=== PATIENT | male | born 1965 | race African-American/Black ===

== ENCOUNTER 2016-07-31 19:28 | Inpatient (IN) | payer MEDICAID ==
[~2016-07-31] VITALS: Ht 177.8 cm; Wt 165.0 kg
[~2016-07-31 19:28] MED LIST: ALLO100T PO; AMLO-512 PO; LISI10TA7 PO; SIMV5TAB6 PO
[2016-07-31 20:24] LABS: BASOPHILS % (AUTO) 1.2 % (0.0-2.0); EOSINOPHILS % (AUTO) 4.1 % (1.0-6.0); HEMATOCRIT 40.4 % (41-53); HEMOGLOBIN 12.9 g/dL (13.5-17.5); LYMPHOCYTES # (AUTO) 2.2 K/uL (1.0-4.8); LYMPHOCYTES % (AUTO) 36.1 % (22.0-44.0); MEAN CORPUSCULAR HEMOGLOBIN 26.4 pg (26.0-34.0); MEAN CORPUSCULAR VOLUME 83 fL (80-100); MONOCYTES % (AUTO) 16.4 % (2.0-9.0); NEUTROPHILS # (AUTO) 2.6 K/uL (1.8-7.7); NEUTROPHILS % (AUTO) 42.2 % (40.0-70.0); PLATELET COUNT (AUTO) 253 K/uL (150-450); RED CELL DISTRIBUTION WIDTH 16.2 % (11.5-14.5); WHITE BLOOD COUNT (AUTO) 6.1 K/uL (4.5-11.0)
[2016-07-31 22:07] LABS: ANION GAP 9 mmol/L (8-16); CALCIUM, TOTAL 8.8 mg/dL (8.8-10.5); CARBON DIOXIDE 27 mmol/L (22-29); CHLORIDE 106 mmol/L (98-107); CREATININE 1.26 mg/dL (0.60-1.30); GLOMERULAR FILTR. RATE CALC > 60 mL/min (>60); POTASSIUM 4.2 mmol/L (3.5-5.1); SODIUM SERUM 142 mmol/L (136-145); UREA NITROGEN, BLOOD 14 mg/dL (7-18)
[2016-07-31 22:14] LABS: ALANINE AMINOTRANSFERASE 34 U/L (12-78); ALBUMIN 3.4 g/dL (3.4-5.0); ASPARTATE AMINOTRANSFERASE 28 U/L (15-37); BILIRUBIN,TOTAL 0.1 mg/dL (0.1-1.0); TOTAL PROTEIN, SERUM 7.6 g/dL (6.4-8.2)
[2016-07-31] MEDS ORDERED: ALBUTEROL SULFATE 5 MG/ML 20 ML NEB SOLN [BULK] NEB ONE (23:00)
[2016-07-31] MEDS ORDERED: IPRATROPIUM BROMIDE 0.5 MG/2.5 ML NEB SOLUTION NEB ONE (23:00)
[2016-07-31] MEDS ORDERED: LORazepam 2 MG TABLET PO PRN (23:15)
[2016-07-31] MEDS ORDERED: ZOLPIDEM TARTRATE 10 MG TABLET PO PRN (23:15)
[2016-07-31] MEDS ORDERED: HALOPERIDOL 5 MG TABLET PO PRN (23:15)
[2016-07-31] MEDS ORDERED: 0.9% SODIUM CHLORIDE 5 ML NEB SOLUTION NEB ONE (23:17)
[2016-07-31 23:45] LABS: CREATINE KINASE MB 2.9 ng/mL (0-5); CREATINE KINASE, TOTAL 686 U/L (39-308)
[2016-08-01 00:44] LABS: CREATINE KINASE MB 2.5 ng/mL (0-5); CREATINE KINASE, TOTAL 608 U/L (39-308)
[2016-08-01] MEDS ORDERED: SODIUM CHLORIDE 0.9% 1,000 ML IV ONE (01:00)
[2016-08-01] MEDS ORDERED: ASPIRIN 325 MG TABLET PO ONE (01:00)
[2016-08-01] MEDS ORDERED: LORazepam 2 MG/ML VIAL IVP ONE ×2 (01:00→02:00)
[2016-08-01] MEDS ORDERED: NITROGLYCERIN 2% (1 GM=INCH) PACKET TP ONE (01:00)
[2016-08-01] MEDS ORDERED: ACETAMINOPHEN 325 MG TABLET PO PRN ×2 (01:45→05:45)
[2016-08-01] MEDS ORDERED: 0.9% SODIUM CHLORIDE 10 ML SYRINGE IVP PRN ×2 (01:45→05:45)
[2016-08-01] MEDS ORDERED: ONDANSETRON HCL 4 MG/2 ML VIAL IVP PRN ×2 (01:45→05:45)
[2016-08-01] MEDS ORDERED: ENOXAPARIN SODIUM 80 MG/0.8 ML PF SYRINGE SQ ONE (02:00)
[2016-08-01] MEDS ORDERED: ENOXAPARIN SODIUM 60 MG/0.6 ML PF SYRINGE SQ ONE (02:00)
[2016-08-01 02:07] LABS: INR 0.9 (0.9-1.1)
[2016-08-01] MEDS ORDERED: MAGNESIUM HYDROXIDE SUSPENSION 30 ML UDCUP PO PRN (05:45)
[2016-08-01] MEDS ORDERED: BISACODYL 10 MG RECTAL RECTAL SUPPOSITORY PR PRN (05:45)
[2016-08-01] MEDS ORDERED: ZOLPIDEM TARTRATE 5 MG TABLET PO PRN (05:45)
[2016-08-01] MEDS: ASPIRIN 81 MG CHEWABLE TABLET PO SCH (06:18)
[2016-08-01 06:28] LABS: CHOL/HDL RATIO 3.3 (4.2-7.3)
[2016-08-01] MEDS: HEPARIN SODIUM,PORCINE 5,000 UNITS/ML VIAL SQ SCH ×2 (07:39→15:47)
[2016-08-01] MEDS: HYDROCODONE/ACETAMINOPHEN 5-325 MG TABLET PO PRN ×2 (07:58→17:47)
[2016-08-01] MEDS: ATORVASTATIN CALCIUM 40 MG TABLET PO SCH (07:59)
[2016-08-01] MEDS: PANTOPRAZOLE SODIUM 40 MG DR TABLET PO SCH (08:00)
[2016-08-01] MEDS: DOCUSATE SODIUM 100 MG CAPSULE PO SCH ×2 (08:00→20:29)
[2016-08-01] MEDS: LISINOPRIL 10 MG TABLET PO SCH (08:00)
[2016-08-01] MEDS: AmLODIPine BESYLATE 10 MG TABLET PO SCH (09:08)
[2016-08-01] MEDS: MORPHINE SULFATE 2 MG/ML SYRINGE IVP PRN (10:28)
[2016-08-01 17:05] VITALS: BP 120/74
[2016-08-01] MEDS ORDERED: LORazepam 2 MG/ML VIAL IVP PRN (18:15)
[2016-08-01] MEDS: NICOTINE 21 MG/24 HOUR PATCH TD SCH (18:15)
[2016-08-01 19:57] VITALS: BP 120/95
[2016-08-01 23:14] VITALS: BP 122/72
[2016-08-02] MEDS: HEPARIN SODIUM,PORCINE 5,000 UNITS/ML VIAL SQ SCH ×3 (00:30→16:15)
[2016-08-02 04:46] VITALS: BP 138/72
[2016-08-02] MEDS: ASPIRIN 81 MG CHEWABLE TABLET PO SCH (05:55)
[2016-08-02 07:54] VITALS: BP 117/79
[2016-08-02] MEDS: NICOTINE 21 MG/24 HOUR PATCH TD SCH ×2 (08:04→08:09)
[2016-08-02] MEDS: PANTOPRAZOLE SODIUM 40 MG DR TABLET PO SCH (08:04)
[2016-08-02] MEDS: AmLODIPine BESYLATE 10 MG TABLET PO SCH (08:04)
[2016-08-02] MEDS: LISINOPRIL 10 MG TABLET PO SCH (08:04)
[2016-08-02] MEDS: ATORVASTATIN CALCIUM 40 MG TABLET PO SCH (08:04)
[2016-08-02] MEDS: DOCUSATE SODIUM 100 MG CAPSULE PO SCH ×3 (08:04→19:57)
[2016-08-02 08:40] VITALS: BP 141/67
[2016-08-02] MEDS: HYDROCODONE/ACETAMINOPHEN 5-325 MG TABLET PO PRN ×2 (08:49→16:15)
[2016-08-02 11:33] VITALS: BP 106/57
[2016-08-02 15:50] VITALS: BP 127/64
[2016-08-02] MEDS ORDERED: ASPI81 PO (16:48)
[2016-08-02] MEDS ORDERED: AMLO-512 PO (16:49)
[2016-08-02] MEDS ORDERED: ATOR40TA28 PO (16:49)
[2016-08-02] MEDS ORDERED: HEPA500017 SQ (16:50)
[2016-08-02] MEDS ORDERED: LISI-661 PO (16:50)
[2016-08-02] MEDS ORDERED: PANT40TA25 PO (16:51)
[2016-08-02] MEDS ORDERED: NICO21T TD (16:51)
[2016-08-02 19:16] VITALS: BP 120/58
[2016-08-02] MEDS: PALIPERIDONE 6 MG ER TABLET PO SCH (19:51)
[2016-08-02] MEDS: MORPHINE SULFATE 2 MG/ML SYRINGE IVP PRN (19:51)
[2016-08-03] VITALS (9 sets, daily range): BP systolic 106–130; BP diastolic 57–76
[2016-08-03] MEDS: HEPARIN SODIUM,PORCINE 5,000 UNITS/ML VIAL SQ SCH ×3 (00:03→14:42)
[2016-08-03] MEDS: HYDROCODONE/ACETAMINOPHEN 5-325 MG TABLET PO PRN ×3 (00:10→18:54)
[2016-08-03] MEDS: ASPIRIN 81 MG CHEWABLE TABLET PO SCH (06:18)
[2016-08-03 07:31] LABS: ANION GAP 8 mmol/L (8-16); CALCIUM, TOTAL 8.8 mg/dL (8.8-10.5); CARBON DIOXIDE 28 mmol/L (22-29); CHLORIDE 103 mmol/L (98-107); CREATININE 1.22 mg/dL (0.60-1.30); GLOMERULAR FILTR. RATE CALC > 60 mL/min (>60); POTASSIUM 4.5 mmol/L (3.5-5.1); SODIUM SERUM 139 mmol/L (136-145); UREA NITROGEN, BLOOD 19 mg/dL (7-18)
[2016-08-03] MEDS: DOCUSATE SODIUM 100 MG CAPSULE PO SCH ×2 (08:34→20:21)
[2016-08-03] MEDS: NICOTINE 21 MG/24 HOUR PATCH TD SCH (08:34)
[2016-08-03] MEDS: PANTOPRAZOLE SODIUM 40 MG DR TABLET PO SCH (08:34)
[2016-08-03] MEDS: ATORVASTATIN CALCIUM 40 MG TABLET PO SCH (08:34)
[2016-08-03] MEDS: LISINOPRIL 10 MG TABLET PO SCH (08:34)
[2016-08-03] MEDS: AmLODIPine BESYLATE 10 MG TABLET PO SCH (08:34)
[2016-08-03] MEDS: FLUoxetine HCL 20 MG CAPSULE PO SCH (08:34)
[2016-08-03] MEDS: PALIPERIDONE 6 MG ER TABLET PO SCH (20:21)
[2016-08-04] VITALS (18 sets, daily range): BP systolic 100–145; BP diastolic 45–90
[2016-08-04] MEDS: ASPIRIN 81 MG CHEWABLE TABLET PO SCH (06:00)
[2016-08-04] MEDS: HEPARIN SODIUM,PORCINE 5,000 UNITS/ML VIAL SQ SCH ×3 (07:33→15:56)
[2016-08-04] MEDS: DOCUSATE SODIUM 100 MG CAPSULE PO SCH (07:33)
[2016-08-04] MEDS: NICOTINE 21 MG/24 HOUR PATCH TD SCH (07:34)
[2016-08-04] MEDS ORDERED: FentaNYL CITRATE-PF 100 MCG/2 ML VIAL ONE ×2 (08:38→10:04)
[2016-08-04] MEDS ORDERED: LIDOCAINE HCL/PF 1% 30 ML VIAL ONE ×2 (08:39→09:30)
[2016-08-04] MEDS ORDERED: IOHEXOL 300 MG/ML 150 ML VIAL ONE (08:39)
[2016-08-04] MEDS ORDERED: MIDAZOLAM HCL 2 MG/2 ML VIAL ONE ×2 (08:39→10:04)
[2016-08-04] MEDS ORDERED: SODIUM BICARBONATE 50 MEQ/50 ML VIAL ONE (08:39)
[2016-08-04] MEDS ORDERED: HEPARIN SODIUM 1000 UNITS/NS 1,000 ML ONE (08:40)
[2016-08-04] MEDS ORDERED: NITROGLYCERIN 50 MG/D5% WATER 250 ML ONE (08:41)
[2016-08-04] MEDS ORDERED: VERAPAMIL HCL 2.5 MG/ML 2 ML VIAL ONE (08:41)
[2016-08-04] MEDS ORDERED: FentaNYL CITRATE-PF 100 MCG/2 ML VIAL IVP ONE ×2 (09:37→10:00)
[2016-08-04] MEDS ORDERED: DiphenhydrAMINE HCL 50 MG/ML VIAL ONE (09:37)
[2016-08-04] MEDS ORDERED: SODIUM CHLORIDE 0.9% 500 ML IV ONE (09:37)
[2016-08-04] MEDS ORDERED: MIDAZOLAM HCL 2 MG/2 ML VIAL IVP ONE ×2 (09:37→10:00)
[2016-08-04] MEDS ORDERED: MethylPREDNISolone SOD SUCC 125 MG/2 ML VIAL IVP ONE (09:38)
[2016-08-04] MEDS ORDERED: DiphenhydrAMINE HCL 50 MG/ML VIAL IVP ONE (09:38)
[2016-08-04] MEDS ORDERED: MethylPREDNISolone SOD SUCC 125 MG/2 ML VIAL ONE (09:42)
[2016-08-04] MEDS ORDERED: LIDOCAINE 1% 30 ML/SOD BICARB 8.4% 4 ML SQ ONE (10:03)
[2016-08-04] MEDS ORDERED: HEPARIN SODIUM,PORCINE 5,000 UNITS/ML VIAL IVP ONE (10:06)
[2016-08-04] MEDS ORDERED: NITROGLYCERIN/D5W 50 MG/250 ML IV BOTTLE IARTER ONE (10:06)
[2016-08-04] MEDS ORDERED: VERAPAMIL HCL 2.5 MG/ML 2 ML VIAL IARTER ONE (10:06)
[2016-08-04] MEDS ORDERED: HEPARIN SODIUM 1000 UNITS/NS 1,000 ML IARTER ONE (10:07)
[2016-08-04] MEDS ORDERED: IOHEXOL 300 MG/ML 150 ML VIAL IARTER ONE (10:14)
[2016-08-04] MEDS: ATORVASTATIN CALCIUM 40 MG TABLET PO SCH (11:42)
[2016-08-04] MEDS: LISINOPRIL 10 MG TABLET PO SCH (11:42)
[2016-08-04] MEDS: FLUoxetine HCL 20 MG CAPSULE PO SCH (11:42)
[2016-08-04] MEDS: AmLODIPine BESYLATE 10 MG TABLET PO SCH (11:42)
[2016-08-04] MEDS: PANTOPRAZOLE SODIUM 40 MG DR TABLET PO SCH (11:46)
[2016-08-04] MEDS: HYDROCODONE/ACETAMINOPHEN 5-325 MG TABLET PO PRN (13:16)
[2016-08-04] MEDS ORDERED: PALI6 PO (15:50)
[2016-08-04] MEDS ORDERED: AMLO-511 PO (15:50)
[2016-08-04] MEDS ORDERED: FLUO-191 PO (15:52)
[2016-08-04] MEDS ORDERED: DSS100 PO (15:52)
[2016-08-04] MEDS ORDERED: METO25 PO (15:53)
[2016-08-04 16:35] LABS: ANION GAP 10 mmol/L (8-16); CALCIUM, TOTAL 8.9 mg/dL (8.8-10.5); CARBON DIOXIDE 25 mmol/L (22-29); CHLORIDE 101 mmol/L (98-107); CREATININE 1.38 mg/dL (0.60-1.30); GLOMERULAR FILTR. RATE CALC > 60 mL/min (>60); POTASSIUM 4.2 mmol/L (3.5-5.1); SODIUM SERUM 136 mmol/L (136-145); UREA NITROGEN, BLOOD 20 mg/dL (7-18)
[2016-08-04] MEDS ORDERED: MAGNESIUM SULFATE 2 GM in DEXTROSE 5%-WATER 50 ML IV ONE (17:00)
[2016-08-04] MEDS ORDERED: SODIUM CHLORIDE 0.9% 100 ML ONE (18:00)
[2016-08-04] MEDS ORDERED: METOPROLOL TARTRATE 25 MG TABLET PO SCH (21:00)
[2016-08-05] MEDS ORDERED: AmLODIPine BESYLATE 5 MG TABLET PO SCH (09:00)
== END 2016-08-04 21:00 | DRG 205 ==
LOC: EMS 19:29 → 5N 08-01 15:57
PROVIDERS: ADMIT Internal Medicine; ATTEND Internal Medicine
DX: I42.7 Cardiomyopathy due to drug and external agent (principal); I47.2 Ventricular tachycardia; R45.851 Suicidal ideations; Z68.43 Body mass index [BMI] 50.0-59.9, adult; I20.0 Unstable angina; E66.01 Morbid (severe) obesity due to excess calories; J44.9 Chronic obstructive pulmonary disease, unspecified; E78.5 Hyperlipidemia, unspecified; G47.33 Obstructive sleep apnea (adult) (pediatric); F25.1 Schizoaffective disorder, depressive type; F31.9 Bipolar disorder, unspecified; I10 Essential (primary) hypertension; M10.9 Gout, unspecified; F41.9 Anxiety disorder, unspecified; F14.10 Cocaine abuse, uncomplicated; F17.210 Nicotine dependence, cigarettes, uncomplicated; Z88.5 Allergy status to narcotic agent; Z88.0 Allergy status to penicillin; Z91.013 Allergy to seafood; Z91.018 Allergy to other foods; Z91.14 Patient's other noncompliance with medication regimen; Z79.899 Other long term (current) drug therapy; Z91.5 Personal history of self-harm; Z87.11 Personal history of peptic ulcer disease; Z81.8 Family history of other mental and behavioral disorders
CPT/HCPCS: 83735; 93005; 93306; 94640; 96372; 96374; 99285; G0480; J1200; J1644; J1650; J2060; J2250; J2270; J2930; J3010; J3475; J3490; J7030; J7050; J7060; Q9967

== ENCOUNTER 2016-08-04 21:00 | Inpatient (IN) | payer MEDICAID ==
[~2016-08-04] VITALS: Ht 177.8 cm; Wt 161.3 kg
[~2016-08-04 21:00] MED LIST changes: -ALLO100T PO; +AMLO-511 PO; +ASPI81 PO; +ATOR40TA28 PO; +DSS100 PO; +FLUO-191 PO; +HEPA500017 SQ; +LISI-661 PO; -LISI10TA7 PO; +METO25 PO; +NICO21T TD; +PALI6 PO; +PANT40TA25 PO; -SIMV5TAB6 PO
[2016-08-04] MEDS ORDERED: OLANZapine 5 MG RAPDIS TABLET PO PRN (22:45)
[2016-08-04] MEDS ORDERED: ZOLPIDEM TARTRATE 10 MG TABLET PO PRN (22:45)
[2016-08-04 23:04] VITALS: BP 137/83
[2016-08-05] MEDS: LORazepam 2 MG TABLET PO PRN ×2 (03:20→09:30)
[2016-08-05] MEDS ORDERED: BENZOCAINE/MENTHOL LOZENGE [8 LOZENGES/PACKET] MM PRN (06:00)
[2016-08-05] MEDS ORDERED: MAGNESIUM HYDROXIDE SUSPENSION 30 ML UDCUP PO PRN (06:00)
[2016-08-05] MEDS ORDERED: LOPERAMIDE HCL 2 MG CAPSULE PO PRN (06:00)
[2016-08-05] MEDS ORDERED: PETROLATUM,WHITE 71 GM JELLY TP PRN (06:00)
[2016-08-05] MEDS ORDERED: CloNIDine HCL 0.1 MG TABLET PO PRN (06:00)
[2016-08-05] MEDS ORDERED: ONDANSETRON HCL 4 MG TABLET PO PRN (06:00)
[2016-08-05] MEDS ORDERED: BACITRACIN 28.4 GM OINTMENT TP PRN (06:00)
[2016-08-05] MEDS ORDERED: ALBUTEROL SULFATE HFA 90 MCG/PUFF 8 GM INHALER IH PRN (06:00)
[2016-08-05] MEDS ORDERED: MAG HYDROX/AL HYDROX/SIMETH ES 30 ML SUSPENSION UDCUP PO PRN (06:00)
[2016-08-05] MEDS: ACETAMINOPHEN 325 MG TABLET PO PRN ×3 (07:21→20:40)
[2016-08-05 08:20] VITALS: BP 143/72
[2016-08-05 08:22] LABS: BASOPHILS % (AUTO) 0.1 % (0.0-2.0); EOSINOPHILS % (AUTO) 0 % (1.0-6.0); HEMATOCRIT 42.5 % (41-53); HEMOGLOBIN 13.6 g/dL (13.5-17.5); LYMPHOCYTES # (AUTO) 1.1 K/uL (1.0-4.8); LYMPHOCYTES % (AUTO) 7.7 % (22.0-44.0); MEAN CORPUSCULAR HEMOGLOBIN 26.5 pg (26.0-34.0); MEAN CORPUSCULAR VOLUME 83 fL (80-100); MONOCYTES % (AUTO) 7.3 % (2.0-9.0); NEUTROPHILS # (AUTO) 11.9 K/uL (1.8-7.7); NEUTROPHILS % (AUTO) 84.9 % (40.0-70.0); PLATELET COUNT (AUTO) 256 K/uL (150-450); RED BLOOD CELL COUNT(AUTO) 5.12 MIL/uL (4.50-5.90); RED CELL DISTRIBUTION WIDTH 15.7 % (11.5-14.5)
[2016-08-05 08:55] LABS: ALANINE AMINOTRANSFERASE 44 U/L (12-78); ALBUMIN 3.3 g/dL (3.4-5.0); ANION GAP 10 mmol/L (8-16); ASPARTATE AMINOTRANSFERASE 24 U/L (15-37); BILIRUBIN,TOTAL 0.2 mg/dL (0.1-1.0); CALCIUM, TOTAL 8.7 mg/dL (8.8-10.5); CARBON DIOXIDE 26 mmol/L (22-29); CHLORIDE 101 mmol/L (98-107); CREATININE 1.11 mg/dL (0.60-1.30); GLOMERULAR FILTR. RATE CALC > 60 mL/min (>60); POTASSIUM 4.3 mmol/L (3.5-5.1); SODIUM SERUM 137 mmol/L (136-145); TOTAL PROTEIN, SERUM 7.9 g/dL (6.4-8.2); UREA NITROGEN, BLOOD 19 mg/dL (7-18)
[2016-08-05] MEDS: LISINOPRIL 10 MG TABLET PO SCH (09:26)
[2016-08-05] MEDS: METOPROLOL TARTRATE 25 MG TABLET PO SCH ×2 (09:26→16:47)
[2016-08-05] MEDS: FLUoxetine HCL 20 MG CAPSULE PO SCH (09:26)
[2016-08-05] MEDS: AmLODIPine BESYLATE 5 MG TABLET PO SCH (09:26)
[2016-08-05] MEDS: ASPIRIN 81 MG CHEWABLE TABLET PO SCH (09:26)
[2016-08-05] MEDS: PANTOPRAZOLE SODIUM 40 MG DR TABLET PO SCH (09:26)
[2016-08-05] MEDS: DOCUSATE SODIUM 100 MG CAPSULE PO SCH ×2 (09:26→16:47)
[2016-08-05] MEDS: ATORVASTATIN CALCIUM 40 MG TABLET PO SCH (09:27)
[2016-08-05 17:20] VITALS: BP 132/82
[2016-08-05] MEDS: PALIPERIDONE 6 MG ER TABLET PO SCH (20:36)
[2016-08-05 20:42] VITALS: BP 135/78
[2016-08-06] MEDS: ATORVASTATIN CALCIUM 40 MG TABLET PO SCH (09:27)
[2016-08-06 09:30] VITALS: BP 129/62
[2016-08-06] MEDS: FLUoxetine HCL 20 MG CAPSULE PO SCH (09:30)
[2016-08-06] MEDS: ACETAMINOPHEN 325 MG TABLET PO PRN (09:30)
[2016-08-06] MEDS: LISINOPRIL 10 MG TABLET PO SCH (09:30)
[2016-08-06] MEDS: AmLODIPine BESYLATE 5 MG TABLET PO SCH (09:30)
[2016-08-06] MEDS: PANTOPRAZOLE SODIUM 40 MG DR TABLET PO SCH (09:30)
[2016-08-06] MEDS: DOCUSATE SODIUM 100 MG CAPSULE PO SCH ×2 (09:31→16:22)
[2016-08-06] MEDS: ASPIRIN 81 MG CHEWABLE TABLET PO SCH (09:31)
[2016-08-06] MEDS: METOPROLOL TARTRATE 25 MG TABLET PO SCH ×2 (09:31→16:22)
[2016-08-06 10:30] VITALS: BP 132/81
[2016-08-06] MEDS: TraMADol HCL 50 MG TABLET PO PRN (13:45)
[2016-08-06 17:18] VITALS: BP 126/64
[2016-08-06] MEDS: PALIPERIDONE 6 MG ER TABLET PO SCH (20:43)
[2016-08-07] MEDS: METOPROLOL TARTRATE 25 MG TABLET PO SCH (08:34)
[2016-08-07] MEDS: LISINOPRIL 10 MG TABLET PO SCH (08:34)
[2016-08-07] MEDS: DOCUSATE SODIUM 100 MG CAPSULE PO SCH (08:34)
[2016-08-07] MEDS: ATORVASTATIN CALCIUM 40 MG TABLET PO SCH (08:34)
[2016-08-07] MEDS: PANTOPRAZOLE SODIUM 40 MG DR TABLET PO SCH (08:34)
[2016-08-07] MEDS: ASPIRIN 81 MG CHEWABLE TABLET PO SCH (08:34)
[2016-08-07] MEDS: AmLODIPine BESYLATE 5 MG TABLET PO SCH (08:34)
[2016-08-07] MEDS: FLUoxetine HCL 20 MG CAPSULE PO SCH (08:34)
[2016-08-07 08:40] VITALS: BP 152/92
[2016-08-07] MEDS: TraMADol HCL 50 MG TABLET PO PRN (08:40)
== END 2016-08-07 14:30 | disposition home or self-care (01) | DRG 750 ==
LOC: 3EI 21:00
PROVIDERS: ADMIT Psychiatry & Neurology Psychiatry; ATTEND Psychiatry & Neurology Psychiatry
PROC: 5A09357 Assistance with Respiratory Ventilation, Less than 24 Consecutive Hours, Continuous Positive Airway Pressure (ICD-10-PCS; principal; 2016-08-04)
DX: F25.1 Schizoaffective disorder, depressive type (principal); R45.851 Suicidal ideations; F14.20 Cocaine dependence, uncomplicated; J44.9 Chronic obstructive pulmonary disease, unspecified; I10 Essential (primary) hypertension; F19.10 Other psychoactive substance abuse, uncomplicated; G47.33 Obstructive sleep apnea (adult) (pediatric); R51 Headache; K21.9 Gastro-esophageal reflux disease without esophagitis; K59.00 Constipation, unspecified; E66.01 Morbid (severe) obesity due to excess calories; F17.210 Nicotine dependence, cigarettes, uncomplicated; Z71.6 Tobacco abuse counseling; Z71.51 Drug abuse counseling and surveillance of drug abuser; Z88.6 Allergy status to analgesic agent; Z88.0 Allergy status to penicillin; Z91.013 Allergy to seafood; Z79.51 Long term (current) use of inhaled steroids; Z68.43 Body mass index [BMI] 50.0-59.9, adult; Z79.899 Other long term (current) drug therapy; Z88.8 Allergy status to other drugs, medicaments and biological substances; Z91.018 Allergy to other foods; Z91.09 Other allergy status, other than to drugs and biological substances; Z98.890 Other specified postprocedural states; Z91.5 Personal history of self-harm; Z80.42 Family history of malignant neoplasm of prostate; Z81.8 Family history of other mental and behavioral disorders
CPT/HCPCS: 87081; 94660

== ENCOUNTER 2016-09-14 21:19 | Inpatient (IN) | payer MEDICAID ==
[~2016-09-14] VITALS: Ht 175.3 cm; Wt 165.9 kg
[~2016-09-14 21:19] MED LIST changes: -AMLO-512 PO; -HEPA500017 SQ; -NICO21T TD
[2016-09-14 21:59] LABS: BASOPHILS # (AUTO) 0.04 K/uL (0.00-0.20); BASOPHILS % (AUTO) 0.5 % (0.0-2.0); EOSINOPHILS # (AUTO) 0.07 K/uL (0.00-0.70); EOSINOPHILS % (AUTO) 0.91 % (1.0-6.0); HEMOGLOBIN 13.3 g/dL (13.5-17.5); LYMPHOCYTES # (AUTO) 1.7 K/uL (1.0-4.8); LYMPHOCYTES % (AUTO) 23.1 % (22.0-44.0); MEAN CORPUSCULAR HEMOGLOBIN 26.4 pg (26.0-34.0); MEAN CORPUSCULAR HGB CONC 31.7 G/dL (31.0-37.0); MEAN CORPUSCULAR VOLUME 83 fL (80-100); MONOCYTES # (AUTO) 0.7 K/uL (0.1-1.0); NEUTROPHILS # (AUTO) 4.8 K/uL (1.8-7.7); NEUTROPHILS % (AUTO) 65.4 % (40.0-70.0); PLATELET COUNT (AUTO) 269 K/uL (150-450); RED BLOOD CELL COUNT(AUTO) 5.06 MIL/uL (4.50-5.90); RED CELL DISTRIBUTION WIDTH 15.6 % (11.5-14.5); WHITE BLOOD COUNT (AUTO) 7.3 K/uL (4.5-11.0)
[2016-09-14 22:05] LABS: ANION GAP 7 mmol/L (8-16); CALCIUM, TOTAL 8.7 mg/dL (8.8-10.5); CARBON DIOXIDE 31 mmol/L (22-29); CHLORIDE 107 mmol/L (98-107); CREATININE 1.23 mg/dL (0.60-1.30); GLOMERULAR FILTR. RATE CALC > 60 mL/min (>60); POTASSIUM 3.8 mmol/L (3.5-5.1); SODIUM SERUM 145 mmol/L (136-145); UREA NITROGEN, BLOOD 10 mg/dL (7-18)
[2016-09-14 22:11] LABS: ALANINE AMINOTRANSFERASE 32 U/L (12-78); ALBUMIN 3.5 g/dL (3.4-5.0); ASPARTATE AMINOTRANSFERASE 22 U/L (15-37); BILIRUBIN,TOTAL 0.3 mg/dL (0.1-1.0); TOTAL PROTEIN, SERUM 7.4 g/dL (6.4-8.2)
[2016-09-15] MEDS ORDERED: LORazepam 2 MG TABLET PO PRN (01:45)
[2016-09-15] MEDS ORDERED: OLANZapine 5 MG RAPDIS TABLET PO PRN (01:45)
[2016-09-15] MEDS ORDERED: ZOLPIDEM TARTRATE 10 MG TABLET PO PRN (01:45)
[2016-09-15 01:51] LABS: APPEARANCE,URINE CLEAR (CLEAR); GLUCOSE, URINE (UA) NEGATIVE (NEGATIVE); KETONES,URINE NEGATIVE (NEGATIVE); LEUKOCYTE ESTERASE ,URINE NEGATIVE (NEGATIVE); OCCULT BLOOD,URINE NEGATIVE (NEGATIVE); PROTEIN,URINE NEGATIVE (NEGATIVE)
[2016-09-15 01:54] LABS: ADD UA MICROSCOPIC NO
[2016-09-15 01:58] LABS: CHOL/HDL RATIO 2.7 (4.2-7.3)
[2016-09-15 12:29] VITALS: BP 119/60
[2016-09-15] MEDS ORDERED: ACETAMINOPHEN 325 MG TABLET PO PRN (13:30)
[2016-09-15] MEDS ORDERED: LOPERAMIDE HCL 2 MG CAPSULE PO PRN (13:30)
[2016-09-15] MEDS ORDERED: PROMETHAZINE HCL 25 MG TABLET PO PRN (13:30)
[2016-09-15] MEDS ORDERED: TUBERCULIN, PURIFIED PROTEIN DERIVATIVE 5 TU/0.1 ML SYG ID ONE (13:30)
[2016-09-15] MEDS ORDERED: GuaiFENesin/D-METHORPHAN [SUGAR-FREE] 200-20MG/10 ML SYRUP UDCUP PO PRN (13:30)
[2016-09-15] MEDS ORDERED: HydrOXYzine PAMOATE 50 MG CAPSULE PO PRN (13:30)
[2016-09-15] MEDS ORDERED: MAGNESIUM HYDROXIDE SUSPENSION 30 ML UDCUP PO PRN (13:30)
[2016-09-15] MEDS ORDERED: MAG HYDROX/AL HYDROX/SIMETH ES 30 ML SUSPENSION UDCUP PO PRN (13:30)
[2016-09-15 19:03] VITALS: BP 164/84
[2016-09-15] MEDS: THIAMINE HCL 100 MG TABLET PO SCH (20:07)
[2016-09-15] MEDS ORDERED: PALIPERIDONE 6 MG ER TABLET PO SCH (21:00)
[2016-09-16] MEDS ORDERED: PANTOPRAZOLE SODIUM 40 MG DR TABLET PO SCH (09:00)
[2016-09-16] MEDS ORDERED: MULTIVITAMINS WITH MINERALS, THERAPEUTIC TABLET PO SCH (09:00)
[2016-09-16] MEDS ORDERED: ASPIRIN 81 MG EC TABLET PO SCH (09:00)
[2016-09-16] MEDS ORDERED: FOLIC ACID 1 MG TABLET PO SCH (09:00)
[2016-09-16] MEDS ORDERED: AmLODIPine BESYLATE 5 MG TABLET PO SCH (09:00)
[2016-09-16] MEDS ORDERED: LISINOPRIL 10 MG TABLET PO SCH (09:00)
[2016-09-16] MEDS ORDERED: ATORVASTATIN CALCIUM 40 MG TABLET PO SCH (09:00)
[2016-09-16] MEDS: FLUoxetine HCL 20 MG CAPSULE PO SCH ×2 (09:00→09:37)
[2016-09-16] MEDS ORDERED: METOPROLOL TARTRATE 25 MG TABLET PO SCH (09:00)
[2016-09-16] MEDS: THIAMINE HCL 100 MG TABLET PO SCH (09:36)
[2016-09-16] MEDS ORDERED: NALT50 PO (12:29)
[2016-09-16] MEDS ORDERED: PALI6 PO (12:29)
[2016-09-16 14:28] VITALS: BP 132/72
[2016-09-17] MEDS ORDERED: NALTREXONE HCL 50 MG TABLET PO SCH (09:00)
== END 2016-09-16 14:15 | disposition home or self-care (01) | DRG 750 ==
LOC: EMS 21:21 → AHU 09-15 09:43 → 3EI 09-15 18:24
PROVIDERS: ADMIT Psychiatry & Neurology Psychiatry; ATTEND Psychiatry & Neurology Psychiatry
PROC: GZ51ZZZ Individual Psychotherapy, Behavioral (ICD-10-PCS; principal; 2016-09-16)
DX: F25.0 Schizoaffective disorder, bipolar type (principal); Z68.43 Body mass index [BMI] 50.0-59.9, adult; I10 Essential (primary) hypertension; E66.01 Morbid (severe) obesity due to excess calories; E78.5 Hyperlipidemia, unspecified; F17.210 Nicotine dependence, cigarettes, uncomplicated; Z71.6 Tobacco abuse counseling; G47.33 Obstructive sleep apnea (adult) (pediatric); K21.9 Gastro-esophageal reflux disease without esophagitis; J44.9 Chronic obstructive pulmonary disease, unspecified; M10.9 Gout, unspecified; K59.00 Constipation, unspecified; M19.90 Unspecified osteoarthritis, unspecified site; Z98.890 Other specified postprocedural states; Z87.11 Personal history of peptic ulcer disease; F12.10 Cannabis abuse, uncomplicated; Z88.8 Allergy status to other drugs, medicaments and biological substances; Z91.19 Patient's noncompliance with other medical treatment and regimen; Z91.018 Allergy to other foods; Z88.6 Allergy status to analgesic agent; Z71.89 Other specified counseling; Z91.013 Allergy to seafood; Z79.899 Other long term (current) drug therapy; Z79.82 Long term (current) use of aspirin; Z80.42 Family history of malignant neoplasm of prostate
CPT/HCPCS: 94660; 99285; G0480

== ENCOUNTER 2016-10-18 07:54 | Emergency (ER) | payer MEDICAID ==
[~2016-10-18] VITALS: Ht 177.8 cm; Wt 146.8 kg
[~2016-10-18 07:54] MED LIST changes: -DSS100 PO; -FLUO-191 PO; +NALT50 PO
[2016-10-18 09:26] VITALS: BP 115/55
== END 2016-10-18 11:03 | disposition home or self-care (01) ==
LOC: EMS 07:58
DX: F41.9 Anxiety disorder, unspecified (principal); F31.9 Bipolar disorder, unspecified; I10 Essential (primary) hypertension; J44.9 Chronic obstructive pulmonary disease, unspecified; F17.210 Nicotine dependence, cigarettes, uncomplicated; Z88.0 Allergy status to penicillin; Z88.6 Allergy status to analgesic agent; Z88.8 Allergy status to other drugs, medicaments and biological substances; Z91.018 Allergy to other foods
CPT/HCPCS: 99283; 99284

== ENCOUNTER 2017-11-26 21:13 | Inpatient (IN) | payer MEDICAID ==
[~2017-11-26] VITALS: Ht 177.8 cm; Wt 169.5 kg
[~2017-11-26 21:13] MED LIST changes: -NALT50 PO; +NALT50TA6 PO
[2017-11-27 01:13] VITALS: BP 123/73
[2017-11-27] MEDS ORDERED: PETROLATUM,WHITE 71 GM JELLY TP PRN (07:00)
[2017-11-27] MEDS ORDERED: LOPERAMIDE HCL 2 MG CAPSULE PO PRN (07:00)
[2017-11-27] MEDS ORDERED: MAG HYDROX/AL HYDROX/SIMETH ES 30 ML SUSPENSION UDCUP PO PRN (07:00)
[2017-11-27] MEDS ORDERED: IBUPROFEN 400 MG TABLET PO PRN (07:00)
[2017-11-27] MEDS ORDERED: CloNIDine HCL 0.1 MG TABLET PO PRN (07:00)
[2017-11-27] MEDS ORDERED: ONDANSETRON HCL 4 MG TABLET PO PRN (07:00)
[2017-11-27] MEDS ORDERED: ACETAMINOPHEN 325 MG TABLET PO PRN (07:00)
[2017-11-27] MEDS ORDERED: DOCUSATE SODIUM 100 MG CAPSULE PO PRN (07:00)
[2017-11-27] MEDS ORDERED: MAGNESIUM HYDROXIDE SUSPENSION 30 ML UDCUP PO PRN (07:00)
[2017-11-27 08:54] VITALS: BP 133/62
[2017-11-27] MEDS: TRIHEXYPHENIDYL HCL 5 MG TABLET PO SCH (17:42)
[2017-11-27 18:53] VITALS: BP 113/73
[2017-11-28 06:57] LABS: BASOPHILS % (AUTO) 1.1 % (0.0-2.0); EOSINOPHILS % (AUTO) 3.3 % (1.0-6.0); HEMATOCRIT 41.8 % (41-53); HEMOGLOBIN 14.1 g/dL (13.5-17.5); LYMPHOCYTES # (AUTO) 1.8 K/uL (1.0-4.8); LYMPHOCYTES % (AUTO) 33.3 % (22.0-44.0); MEAN CORPUSCULAR HEMOGLOBIN 26.8 pg (26.0-34.0); MEAN CORPUSCULAR HGB CONC 33.6 G/dL (31.0-37.0); MEAN CORPUSCULAR VOLUME 80 fL (80-100); MONOCYTES # (AUTO) 0.7 K/uL (0.1-1.0); MONOCYTES % (AUTO) 12.8 % (2.0-9.0); NEUTROPHILS # (AUTO) 2.6 K/uL (1.8-7.7); NEUTROPHILS % (AUTO) 49.5 % (40.0-70.0); PLATELET COUNT (AUTO) 266 K/uL (150-450); RED BLOOD CELL COUNT(AUTO) 5.25 MIL/uL (4.50-5.90); RED CELL DISTRIBUTION WIDTH 16.8 % (11.5-14.5)
[2017-11-28 07:04] LABS: HEMOGLOBIN A1C 5.9 % (4.5-6.2)
[2017-11-28 07:25] LABS: ANION GAP 6 mmol/L (8-16); CARBON DIOXIDE 30 mmol/L (22-29); CHLORIDE 104 mmol/L (98-107); CREATININE 1.15 mg/dL (0.60-1.30); GLUCOSE,RANDOM 96 mg/dL (70-110); POTASSIUM 3.8 mmol/L (3.5-5.1); SODIUM SERUM 140 mmol/L (136-145); UREA NITROGEN, BLOOD 14 mg/dL (7-18)
[2017-11-28 07:26] LABS: ALANINE AMINOTRANSFERASE 38 U/L (12-78); ALBUMIN 3.1 g/dL (3.4-5.0); ALKALINE PHOSPHATASE 94 U/L (46-116); ASPARTATE AMINOTRANSFERASE 41 U/L (15-37); BILIRUBIN,TOTAL 0.4 mg/dL (0.1-1.0); CALCIUM, TOTAL 8.6 mg/dL (8.8-10.5); CHOL/HDL RATIO 6.3 (4.2-7.3); CHOLESTEROL 245 mg/dL (131-200); GLOMERULAR FILTR. RATE CALC > 60 mL/min (>60); HDL CHOLESTEROL 39 mg/dL (40-60); LDL CHOL (CALC.) 187 mg/dL (0-130); THYROID STIMULATING HORMONE 0.87 uIU/mL (0.36-3.74); TOTAL PROTEIN, SERUM 7.5 g/dL (6.4-8.2); TRIGLYCERIDES 93 mg/dL (15-150)
[2017-11-28 08:22] VITALS: BP 122/83
[2017-11-28] MEDS ORDERED: CloNIDine HCL 0.1 MG TABLET PO PRN (10:00)
[2017-11-28] MEDS ORDERED: ACETAMINOPHEN 325 MG TABLET PO PRN (10:00)
[2017-11-28] MEDS ORDERED: NICOTINE 14 MG/24 HOUR PATCH TD PRN (10:00)
[2017-11-28] MEDS ORDERED: LOPERAMIDE HCL 2 MG CAPSULE PO PRN (10:00)
[2017-11-28] MEDS ORDERED: IBUPROFEN 400 MG TABLET PO PRN (10:00)
[2017-11-28] MEDS ORDERED: ALBUTEROL SULFATE HFA 90 MCG/PUFF 8 GM INHALER IH PRN (10:00)
[2017-11-28] MEDS ORDERED: DOCUSATE SODIUM 100 MG CAPSULE PO PRN (10:00)
[2017-11-28] MEDS ORDERED: PETROLATUM,WHITE 71 GM JELLY TP PRN (10:00)
[2017-11-28] MEDS ORDERED: ONDANSETRON HCL 4 MG TABLET PO PRN (10:00)
[2017-11-28] MEDS ORDERED: MAGNESIUM HYDROXIDE SUSPENSION 30 ML UDCUP PO PRN (10:00)
[2017-11-28] MEDS ORDERED: GuaiFENesin/D-METHORPHAN [SUGAR-FREE] 200-20MG/10 ML SYRUP UDCUP PO PRN (10:00)
[2017-11-28] MEDS ORDERED: MAG HYDROX/AL HYDROX/SIMETH ES 30 ML SUSPENSION UDCUP PO PRN (10:00)
[2017-11-28] MEDS: TRIHEXYPHENIDYL HCL 5 MG TABLET PO SCH ×3 (10:05→17:31)
[2017-11-28] MEDS: BuPROPion HCL XL 150 MG ER TABLET PO SCH (10:05)
[2017-11-28] MEDS: ESCITALOPRAM OXALATE 20 MG TABLET PO SCH (10:05)
[2017-11-28 19:03] VITALS: BP 132/80
[2017-11-29] MEDS: AmLODIPine BESYLATE 5 MG TABLET PO SCH ×2 (09:00→09:19)
[2017-11-29] MEDS: LISINOPRIL 10 MG TABLET PO SCH (09:00)
[2017-11-29] MEDS: ESCITALOPRAM OXALATE 20 MG TABLET PO SCH (09:15)
[2017-11-29] MEDS: TRIHEXYPHENIDYL HCL 5 MG TABLET PO SCH ×3 (09:15→17:11)
[2017-11-29] MEDS: ASPIRIN 81 MG CHEWABLE TABLET PO SCH (09:17)
[2017-11-29] MEDS: ATORVASTATIN CALCIUM 40 MG TABLET PO SCH (09:19)
[2017-11-29] MEDS: BuPROPion HCL XL 150 MG ER TABLET PO SCH (09:20)
[2017-11-29 09:55] VITALS: BP 122/78
[2017-11-29] MEDS ORDERED: LORazepam 2 MG TABLET PO PRN (15:15)
[2017-11-29 21:48] VITALS: BP 110/65
[2017-11-30 08:10] VITALS: BP 108/71
[2017-11-30] MEDS: LISINOPRIL 10 MG TABLET PO SCH (09:00)
[2017-11-30] MEDS: AmLODIPine BESYLATE 5 MG TABLET PO SCH (09:00)
[2017-11-30] MEDS: ASPIRIN 81 MG CHEWABLE TABLET PO SCH (09:40)
[2017-11-30] MEDS: TRIHEXYPHENIDYL HCL 5 MG TABLET PO SCH ×3 (09:40→17:26)
[2017-11-30] MEDS: ESCITALOPRAM OXALATE 20 MG TABLET PO SCH (09:41)
[2017-11-30] MEDS: BuPROPion HCL XL 150 MG ER TABLET PO SCH (09:41)
[2017-11-30] MEDS: ATORVASTATIN CALCIUM 40 MG TABLET PO SCH (09:41)
[2017-11-30 18:59] VITALS: BP 125/66
[2017-12-01] MEDS: TRIHEXYPHENIDYL HCL 5 MG TABLET PO SCH (08:55)
[2017-12-01] MEDS: ESCITALOPRAM OXALATE 20 MG TABLET PO SCH (08:56)
[2017-12-01] MEDS: ATORVASTATIN CALCIUM 40 MG TABLET PO SCH (08:56)
[2017-12-01] MEDS: ASPIRIN 81 MG CHEWABLE TABLET PO SCH (08:56)
[2017-12-01] MEDS: BuPROPion HCL XL 150 MG ER TABLET PO SCH (08:56)
[2017-12-01] MEDS ORDERED: BUPR-93 PO (09:04)
[2017-12-01] MEDS ORDERED: ESCI20TA PO (09:05)
[2017-12-01] MEDS ORDERED: TRIH5TAB2 PO (09:07)
[2017-12-01 10:00] VITALS: BP 124/64
== END 2017-12-01 11:30 | disposition home or self-care (01) | DRG 750 ==
LOC: 3EI 11-27 00:47
PROVIDERS: ADMIT Psychiatry & Neurology Psychiatry; ATTEND Psychiatry & Neurology Psychiatry
DX: F25.0 Schizoaffective disorder, bipolar type (principal); F14.20 Cocaine dependence, uncomplicated; R45.851 Suicidal ideations; I10 Essential (primary) hypertension; E78.5 Hyperlipidemia, unspecified; F17.200 Nicotine dependence, unspecified, uncomplicated; F19.90 Other psychoactive substance use, unspecified, uncomplicated; F41.9 Anxiety disorder, unspecified; G25.9 Extrapyramidal and movement disorder, unspecified; G47.33 Obstructive sleep apnea (adult) (pediatric); J44.9 Chronic obstructive pulmonary disease, unspecified; K21.9 Gastro-esophageal reflux disease without esophagitis; K59.00 Constipation, unspecified; M10.9 Gout, unspecified; T40.5X1A Poisoning by cocaine, accidental (unintentional), initial encounter; Z91.5 Personal history of self-harm; Z88.0 Allergy status to penicillin; Z91.013 Allergy to seafood; Z88.8 Allergy status to other drugs, medicaments and biological substances; Z91.018 Allergy to other foods
CPT/HCPCS: 83036; 84443; 87081